=== PATIENT | male | born 1965 | race Caucasian/White ===

== ENCOUNTER → 2023-02-23 | Outpatient (CLI) | payer OTHER ==
--- NOTE | 2023-02-24 07:23 | CA ---
Stress Echo Report Primo Mukherjee Age: 57 Gender: M : 1965 Exam Date: 02/23/2023 09:43 Exam Location: [place] [facility] Ht (in): 70 Wt (lb): 175 Ordering Physician: Jayden Guardado MD Referring Physician: jayden guardado,, [employer] Tender Glass: Mera Molina RDCS Technologist Procedure CPT: Indication: R42 lightheaded ICD-9 Codes: Rhythm: Patient History: Abnormal EKG Cardiac Medications: NONE Medications in past 24 hours: Contrast: Stress Results Protocol: Merlin Total dose(mL): Exercise Duration (min:sec): 16:[address] Depression (mm): Angina Score: Daley Score: METS: 16.9 Resting HR: 61 Resting BP: 115 / 74 Peak HR: 151 Peak BP: 223 / 82 Max Predicted HR: 164 92 % Max Predicted HR Target HR: 139 Double Product: 56493 Stress Summary: The patient's target heart rate was achieved BP Response: Normal Reason for Termination: Reached target heart rate or work-load Cardiac Symptoms: Test terminated after reaching target heart rate (85% max predicted) ECG Analysis Resting ECG: Stress ECG: Arrhythmia: Echo Analysis Resting Echo: Peak Echo Analysis: MEASUREMENTS (Male/Female) Normal Values CONCLUSIONS Excellent exercise tolerance Excellent augmentation in the blood pressure and heart rate in response to exercise Normal EKG in response to exercise Normal echocardiogram in response to exercise as well Dr. Twan Mitchell MD (Electronically Signed) Final Date: 24 February 2023 07:22
== END | disposition home or self-care (01) ==
LOC: RADNMMAIN 09:14
PROVIDERS: ATTEND Internal Medicine
DX: R42 Dizziness and giddiness (principal)
CPT/HCPCS: 93351